=== PATIENT | female | born 1960 | race Caucasian/White ===

== ENCOUNTER 2023-11-17 16:18 | Outpatient (AMB) | payer OTHER, SELFPAY ==
--- NOTE | 2023-11-17 16:29 | HO.NEPHOV ---
HPI HPI Comments History of Present Illness Details I had the privilege of seeing Sue in follow-up for hypertension and nephrolithiasis. He is known to have mild CKD with a microscopic hematuria and some proteinuria. According to her, she had a CT scan last summer, during which she had developed severe allergy to contrast. In September of 2023, 1 morning she developed chest pressure with the difficulty in breathing. She was seen in emergency room where she underwent imaging studies, EKG and blood work. According to patient, she was told that nothing was found causing that episode. Two days ago she had a chest pressure which was worse than last September associated with the shortness of breath. She was seen in the emergency room and had workup including V/Q scan.( I had no access to any of these medical records and these are the details by the patient). 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 She has no edema, hematuria, frequency, dysuria, fever, nausea, vomiting, flank pain or suprapubic pain. She maintains good hydration. She takes meloxicam for her aches and pains. According to her she was also given prednisone and baclofen, thinking that this could be due to muscle spasms. Her blood pressure has been well controlled on current dose of valsartan. She avoids nonsteroidal anti-inflammatories. [facility] Medical History (Updated 11/18/23 @ 13:07 by Marco Maldonado MD) Microscopic hematuria Proteinuria Hypertension Nephrolithiasis Social History (Updated 11/17/23 @ 16:30 by Yanira Sanders MA) Alcohol intake: current Comment: Occasionally Patient Tobacco Use Status: Never used Tobacco Vital Signs 11/17/23 16:35 Height 5 ft 2 in Weight 173 lb BMI 31.6 BP 136/90 H Blood Pressure Location Lt brachial Position Sitting Pulse 80 Pulse Source Pulse Oximeter Pulse Oximetry (%) 100 Oxygen Delivery Method Room Air Physical Exam Vital Signs: Last Vital Signs Pulse 80 11/17/23 16:35 BP 136/90 H 11/17/23 16:35 Pulse Ox 100 11/17/23 16:35 Oxygen Delivery Method Room Air 11/17/23 16:35 BMI result Body Mass Index 31.6 Const General: comfortable and no acute distress Orientation/consciousness: patient oriented x3 HEENT Head: Yes normocephalic Mouth: Normal oral and palatal mucosa present Eyes EOM: EOMs intact bilaterally Neck Neck: Yes supple Resp Auscultation: clear to auscultation bilaterally Cardio Jugular venous distension: no JVD Rate: regular rate GI Palpation (GI): Soft to palpation Auscultation: normal bowel sounds General: Yes no CVA tenderness Back/Spine/Pelvis Back: no CVA tenderness Skin General skin exam: no rashes or lesions noted Neuro General: patient oriented x3 and moves all extremities Extrem General: Yes no pedal edema Assessment & Plan Assessment & Plan (1) Nephrolithiasis: Code(s): N20.0 - Calculus of kidney (2) Microscopic hematuria: Code(s): R31.29 - Other microscopic hematuria (3) Hypertension: Code(s): I10 - Essential (primary) hypertension Qualifiers: Hypertension type: primary hypertension Qualified Code(s): I10 - Essential (primary) hypertension (4) Proteinuria: Code(s): R80.9 - Proteinuria, unspecified Qualifiers: Proteinuria type: other Qualified Code(s): R80.8 - Other proteinuria Tad Rogers is known to have very mild CKD. She had microscopic hematuria and mild proteinuria. She has history of nephrolithiasis. She is hypertensive. Her blood pressure has been well controlled on current dose of valsartan. She does not take any nonsteroidal anti-inflammatories. She takes fish oil by mouth. She may have had IgA nephropathy. She has not had any exacerbation of renal calculus. She clearly needs echocardiogram, stress test and possibly coronary angiogram to rule out a coronary issue. This has been communicated with his primary care physician by phone call. I ordered blood work for follow-up. If her serum creatinine gets worse, I may consider doing a renal biopsy, if indicated. All questions answered. Follow-up appointment given. Orders: Orders Calcium 11/17/23 I10 - Essential (primary) hypertension, N20.0 - Calculus of kidney, R31.29 - Other microscopic hematuria, R80.9 - Proteinuria, unspecified Blood Urea Nitrogen 11/17/23 I10 - Essential (primary) hypertension, N20.0 - Calculus of kidney, R31.29 - Other microscopic hematuria, R80.9 - Proteinuria, unspecified Creatinine 11/17/23 I10 - Essential (primary) hypertension, N20.0 - Calculus of kidney, R31.29 - Other microscopic hematuria, R80.9 - Proteinuria, unspecified Electrolytes 11/17/23 I10 - Essential (primary) hypertension, N20.0 - Calculus of kidney, R31.29 - Other microscopic hematuria, R80.9 - Proteinuria, unspecified Medications: New valsartan 240 mg (1.5 x 160 mg) PO DAILY 30 days 45 tabs 5RF Coding Level of Care Code Est Pt Level 4 (52970) Diagnoses Nephrolithiasis N20.0 Microscopic hematuria R31.29 Primary hypertension I10 Hypertension type: primary hypertension Other proteinuria R80.8 Proteinuria type: other Results Reviewed Nephrology Results: No Data to Display
[2023-11-17 16:35] VITALS: BP 136/90; PULSE 80; O2SAT 100; BMI 31.6
== END 2023-11-17 16:56 | disposition home or self-care (01) ==
PROVIDERS: PCP Internal Medicine; Visit Provider Internal Medicine Nephrology
DX: N20.0 Calculus of kidney (principal); R31.29 Other microscopic hematuria; I10 Essential (primary) hypertension; R80.8 Other proteinuria
CPT/HCPCS: 99214

== ENCOUNTER → 2023-11-17 16:18 | Outpatient (BNVA) | payer OTHER, SELFPAY | PROVIDERS: PCP Internal Medicine; Visit Provider Internal Medicine Nephrology ==

== ENCOUNTER 2023-12-15 16:07 | Outpatient (AMB) | payer OTHER, SELFPAY ==
[2023-12-15 16:35] VITALS: BP 140/70; PULSE 80; O2SAT 98; BMI 32.2
--- NOTE | 2023-12-15 16:35 | HO.NEPHOV_ITS ---
HPI HPI Comments History of Present Illness Details I had the privilege of seeing Sue in follow-up for hypertension and nephrolithiasis. He is known to have mild CKD with a microscopic hematuria and some proteinuria. According to her, she had a CT scan last summer, during which she had developed severe allergy to contrast. In September of 2023, one morning she developed chest pressure with the difficulty in breathing. She was seen in emergency room where she underwent imaging studies, EKG and blood work. According to patient, she was told that nothing was found causing that episode. Two days ago she had a chest pressure which was worse than last September associated with the shortness of breath. She was seen in the emergency room and had workup including V/Q scan. She has no edema, hematuria, frequency, dysuria, fever, nausea, vomiting, flank pain or suprapubic pain. She maintains good hydration. She takes meloxicam for her aches and pains. According to her she was also given prednisone and baclofen, thinking that this could be due to muscl e spasms. Her blood pressure has been well controlled on current dose of valsartan. She avoids nonsteroidal anti-inflammatories. She feels improved now. She is due to see a conservation enforcement officer soon for continued workup. She has not had any medication changes since last visit. [facility] Medical History (Updated 11/18/23 @ 13:07 by Marco Maldonado MD) Microscopic hematuria Proteinuria Hypertension Nephrolithiasis Social History Alcohol intake: current Comment: Occasionally Patient Tobacco Use Status: Never used Tobacco Vital Signs 12/15/23 16:35 Height 5 ft 2 in Weight 176 lb 4 oz BMI 32.2 BP 140/70 H Blood Pressure Location Rt brachial Position Sitting Pulse 80 Pulse Source Pulse Oximeter Pulse Oximetry (%) 98 Oxygen Delivery Method Room Air Physical Exam Vital Signs: Last Vital Signs Pulse 80 12/15/23 16:35 BP 140/70 H 12/15/23 16:35 Pulse Ox 98 12/15/23 16:35 Oxygen Delivery Method Room Air 12/15/23 16:35 BMI result Body Mass Index 32.2 Const General: comfortable and no acute distress Orientation/consciousness: patient oriented x3 HEENT Head: Yes normocephalic Mouth: Normal oral and palatal mucosa present Eyes EOM: EOMs intact bilaterally Neck Neck: Yes supple Resp Auscultation: clear to auscultation bilaterally Cardio Jugular venous distension: no JVD Rate: regular rate GI Palpation (GI): Soft to palpation Auscultation: normal bowel sounds General: Yes no CVA tenderness Back/Spine/Pelvis Back: no CVA tenderness Skin General skin exam: no rashes or lesions noted Neuro General: patient oriented x3 and moves all extremities Extrem General: Yes no pedal edema Assessment & Plan Assessment & Plan (1) Nephrolithiasis: Code(s): N20.0 - Calculus of kidney (2) Microscopic hematuria: Code(s): R31.29 - Other microscopic hematuria (3) Proteinuria: Code(s): R80.9 - Proteinuria, unspecified Qualifiers: Proteinuria type: other Qualified Code(s): R80.8 - Other proteinuria (4) Hypertension: Code(s): I10 - Essential (primary) hypertension Qualifiers: Hypertension type: primary hypertension Qualified Code(s): I10 - Essential (primary) hypertension Tad Rogers is known to have very mild CKD. She had microscopic hematuria and mild proteinuria. She has history of nephrolithiasis. Her blood pressure has been well controlled on current dose of valsartan. She does not take any nonsteroidal anti-inflammatories. She takes fish oil by mouth. She may have had IgA nephropathy. She has not had any exacerbation of renal calculus. She is going to see a conservation enforcement officer likely is going to get an echocardiogram, stress test and possibly coronary angiogram to rule out a coronary issue. If her serum creatinine gets worse, I may consider doing a renal biopsy, if indicated. All questions answered. Follow-up appointment given. Orders: Orders Creatinine 12/15/23 I10 - Essential (primary) hypertension, N20.0 - Calculus of kidney, R31.29 - Other microscopic hematuria, R80.9 - Proteinuria, unspecified Blood Urea Nitrogen 12/15/23 I10 - Essential (primary) hypertension, N20.0 - Calculus of kidney, R31.29 - Other microscopic hematuria, R80.9 - Proteinuria, unspecified Electrolytes 12/15/23 I10 - Essential (primary) hypertension, N20.0 - Calculus of kidney, R31.29 - Other microscopic hematuria, R80.9 - Proteinuria, unspecified Coding Level of Care Code Est Pt Level 3 (95001) Diagnoses Nephrolithiasis N20.0 Microscopic hematuria R31.29 Other proteinuria R80.8 Proteinuria type: other Primary hypertension I10 Hypertension type: primary hypertension Results Reviewed Nephrology Results: No Data to Display
== END 2023-12-15 17:13 | disposition home or self-care (01) ==
PROVIDERS: PCP Internal Medicine; Visit Provider Internal Medicine Nephrology
DX: N20.0 Calculus of kidney (principal); R31.29 Other microscopic hematuria; R80.8 Other proteinuria; I10 Essential (primary) hypertension
CPT/HCPCS: 99213

== ENCOUNTER → 2023-12-15 16:07 | Outpatient (BNVA) | payer OTHER, SELFPAY | PROVIDERS: PCP Internal Medicine; Visit Provider Internal Medicine Nephrology ==

== ENCOUNTER 2024-04-14 09:30 | Outpatient (AMB) | payer OTHER, SELFPAY ==
--- NOTE | 2024-04-14 09:34 | HO.NEPHOV_ITS ---
Vital Signs 04/14/24 09:35 Height 5 ft 2 in Weight 178 lb BMI 32.6 BP 122/82 Blood Pressure Location Lt brachial Position Sitting Pulse 96 Pulse Source Pulse Oximeter Pulse Oximetry (%) 98 Oxygen Delivery Method Room Air Intake Visit Reasons: Follow Up/ LVM Environmental Scientists Required: No Accompanied by: Self / Same As Patient Allergies Iodinated Contrast Media Allergy (Verified 04/14/24 09:37) Unknown HPI Comments Details: I had the privilege of seeing Sue in follow-up for hypertension and nephrolithiasis. He is known to have mild CKD with a microscopic hematuria and some proteinuria. She has been having some GI issues lately. She has no edema, hematuria, frequency, dysuria, fever, nausea, vomiting, flank pain or suprapubic pain. She maintains good hydration. Her blood pressure has been well controlled on current dose of valsartan. She avoids nonsteroidal anti-inflammatories. She feels improved now. She has not had any medication changes since last visit. [facility] Medical History (Updated 11/18/23 @ 13:07 by Marco Maldonado MD) Microscopic hematuria Proteinuria Hypertension Nephrolithiasis Social History Alcohol intake: current Comment: Occasionally Patient Tobacco Use Status: Never used Tobacco Physical Exam Vital Signs: Last Vital Signs Pulse 96 04/14/24 09:35 BP 122/82 04/14/24 09:35 Pulse Ox 98 04/14/24 09:35 Oxygen Delivery Method Room Air 04/14/24 09:35 BMI result Body Mass Index 32.6 Const General: comfortable and no acute distress Orientation/consciousness: patient oriented x3 HEENT Head: Yes normocephalic Mouth: Normal oral and palatal mucosa present Eyes EOM: EOMs intact bilaterally Neck Neck: Yes supple Resp Auscultation: clear to auscultation bilaterally Cardio Jugular venous distension: no JVD Rate: regular rate GI Palpation (GI): Soft to palpation Auscultation: normal bowel sounds General: Yes no CVA tenderness Back/Spine/Pelvis Back: no CVA tenderness Skin General skin exam: no rashes or lesions noted Neuro General: patient oriented x3 and moves all extremities Extrem General: Yes no pedal edema Results Reviewed Nephrology Results: No Data to Display Assessment & Plan Assessment & Plan (1) Nephrolithiasis: Code(s): N20.0 - Calculus of kidney Category: Medical (2) Microscopic hematuria: Code(s): R31.29 - Other microscopic hematuria Category: Medical (3) Proteinuria: Code(s): R80.9 - Proteinuria, unspecified Category: Medical Qualifiers: Proteinuria type: other Qualified Code(s): R80.8 - Other proteinuria (4) Hypertension: Code(s): I10 - Essential (primary) hypertension Category: Medical Qualifiers: Hypertension type: primary hypertension Qualified Code(s): I10 - Essential (primary) hypertension Tad Rogers is known to have very mild CKD. She had microscopic hematuria and mild proteinuria. She has history of nephrolithiasis. Her blood pressure has been well controlled on current dose of valsartan. She does not take any nonsteroidal anti-inflammatories. She takes fish oil by mouth. She may have had IgA nephropathy. She has not had any exacerbation of renal calculus. All questions answered. Follow-up appointment given. Orders: Orders Blood Urea Nitrogen Today I10 - Essential (primary) hypertension, N20.0 - Calculus of kidney, R31.29 - Other microscopic hematuria, R80.8 - Other proteinuria Creatinine Today I10 - Essential (primary) hypertension, N20.0 - Calculus of kidney, R31.29 - Other microscopic hematuria, R80.8 - Other proteinuria Electrolytes Today I10 - Essential (primary) hypertension, N20.0 - Calculus of kidney, R31.29 - Other microscopic hematuria, R80.8 - Other proteinuria UA and rflx microscopic Today I10 - Essential (primary) hypertension, N20.0 - Calculus of kidney, R31.29 - Other microscopic hematuria, R80.8 - Other proteinuria Protein Creatinine Ratio, Ur Today I10 - Essential (primary) hypertension, N20.0 - Calculus of kidney, R31.29 - Other microscopic hematuria, R80.8 - Other proteinuria Coding Level of Care Code Est Pt Level 4 (05820) Diagnoses Nephrolithiasis N20.0 Microscopic hematuria R31.29 Other proteinuria R80.8 Proteinuria type: other Primary hypertension I10 Hypertension type: primary hypertension
[2024-04-14 09:35] VITALS: BP 122/82; PULSE 96; O2SAT 98; BMI 32.6
== END 2024-04-14 09:55 | disposition home or self-care (01) ==
PROVIDERS: PCP Internal Medicine; Visit Provider Internal Medicine Nephrology
DX: N20.0 Calculus of kidney (principal); R31.29 Other microscopic hematuria; R80.8 Other proteinuria; I10 Essential (primary) hypertension
CPT/HCPCS: 99214

== ENCOUNTER → 2024-04-14 09:30 | Outpatient (BNVA) | payer OTHER, SELFPAY | PROVIDERS: PCP Internal Medicine; Visit Provider Internal Medicine Nephrology ==

== ENCOUNTER 2025-06-29 13:49 | Outpatient (AMB) | payer MEDICARE, SELFPAY ==
--- NOTE | 2025-06-29 14:08 | HO.NEPHOV ---
Vital Signs 06/29/25 14:09 Height 5 ft 2 in Weight 175 lb 6 oz BMI 32.1 BP 140/80 H Blood Pressure Location Lt brachial Position Sitting Pulse 77 Pulse Source Pulse Oximeter Pulse Oximetry (%) 98 Oxygen Delivery Method Room Air Intake Visit Reasons: CKD-LVM Seat Covers Trimmer Required: No Accompanied by: Self / Same As Patient Allergies Iodinated Contrast Media Allergy (Verified 06/29/25 14:09) Unknown Medication List - Last Reconciled 06/29/25 by Marco Maldonado MD cholecalciferol (vitamin D3) 25 mcg PO DAILY omega 4-bom-btu-fish oil 1,000 (120-180) mg (Fish Oil) 1 cap PO DAILY omeprazole 20 mg PO DAILY valsartan 160 mg PO DAILY HPI Comments Details: Sue was seen in follow-up for hypertension and nephrolithiasis. She is known to have mild CKD with a microscopic hematuria and some proteinuria. She has retired from work and is moving to [place], [place]. She has no edema, hematuria, frequency, dysuria, fever, nausea, vomiting, flank pain or suprapubic pain. She maintains good hydration. Her blood pressure has been well controlled on current dose of valsartan. She avoids nonsteroidal anti-inflammatories. She is trying to loose weight . She has not had any medication changes since last visit. [facility] Medical History (Updated 11/18/23 @ 13:07 by Marco Maldonado MD) Microscopic hematuria Proteinuria Hypertension Nephrolithiasis Social History Alcohol intake: current Comment: Occasionally Patient Tobacco Use Status: Never used Tobacco Review of Systems Const All systems reviewed & are unremarkable except as noted in HPI and below Physical Exam Vital Signs: Last Vital Signs Pulse 77 06/29/25 14:09 BP 140/80 H 06/29/25 14:09 Pulse Ox 98 06/29/25 14:09 Oxygen Delivery Method Room Air 06/29/25 14:09 BMI result Body Mass Index 32.1 Const General: comfortable and no acute distress Orientation/consciousness: patient oriented x3 HEENT Head: Yes normocephalic Mouth: Normal oral and palatal mucosa present Eyes EOM: EOMs intact bilaterally Neck Neck: Yes supple Resp Auscultation: clear to auscultation bilaterally Cardio Jugular venous distension: no JVD Rate: regular rate GI Palpation (GI): Soft to palpation Auscultation: normal bowel sounds General: Yes no CVA tenderness Back/Spine/Pelvis Back: no CVA tenderness Skin General skin exam: no rashes or lesions noted Neuro General: patient oriented x3 and moves all extremities Extrem General: Yes no pedal edema Assessment & Plan Assessment & Plan (1) Nephrolithiasis: Code(s): N20.0 - Calculus of kidney Category: Medical (2) Hypertension: Code(s): I10 - Essential (primary) hypertension Category: Medical Qualifiers: Hypertension type: primary hypertension Qualified Code(s): I10 - Essential (primary) hypertension (3) Proteinuria: Code(s): R80.9 - Proteinuria, unspecified Category: Medical Qualifiers: Proteinuria type: other Qualified Code(s): R80.8 - Other proteinuria Tad Rogers is known to have very mild CKD. She has H/O microscopic hematuria and mild proteinuria. She has history of nephrolithiasis. Her blood pressure has been well controlled on current dose of valsartan. She does not take any nonsteroidal anti-inflammatories. She takes fish oil by mouth. She may have had IgA nephropathy. She has not had any exacerbation of renal calculus. I did not make any medication changes today. Valsartan refilled. All questions answered. Follow-up appointment given. Orders: Orders Electrolytes 10 Months I10 - Essential (primary) hypertension, N20.0 - Calculus of kidney, R80.8 - Other proteinuria Protein Creatinine Ratio, Ur 10 Months I10 - Essential (primary) hypertension, N20.0 - Calculus of kidney, R80.8 - Other proteinuria Creatinine 10 Months I10 - Essential (primary) hypertension, N20.0 - Calculus of kidney, R80.8 - Other proteinuria Blood Urea Nitrogen 10 Months I10 - Essential (primary) hypertension, N20.0 - Calculus of kidney, R80.8 - Other proteinuria Medications: Changed From valsartan 160 mg PO DAILY To valsartan 240 mg (1.5 x 160 mg) PO DAILY 135 tabs 3RF 90 days Coding Level of Care Code Est Pt Level 4 (99458) Diagnoses Nephrolithiasis N20.0 Primary hypertension I10 Hypertension type: primary hypertension Other proteinuria R80.8 Proteinuria type: other
[2025-06-29 14:09] VITALS: BP 140/80; PULSE 77; O2SAT 98; BMI 32.1
--- OUTSIDE RECORDS SUMMARY | 2025-06-29 17:42 | XMS_ITS | Clinical Summary ---
Author Organization [facility] Address [address] [facility] [address] [place] [address] Phone Care Team Providers Care S[employer] Security Name Role Phone Larry Patterson MD Primary Care Provider [phone] Allergies No known active allergies Medications cholecalciferol (VITAMIN D-3) 25 MCG (1000 UT) capsule Take 1 capsule by mouth 1 (one) time each day Active Quail-3 Fatty Acids (Fish Oil) 1000 MG capsule delayed-release Take 1 capsule by mouth 1 (one) time each day Active omeprazole (PriLOSEC) [address] capsule Take 20 mg by mouth 1 (one) time each day Do not crush or chew. Active valsartan-hydro CHLOROthiazide (DIOVAN-HCT) 160-12.5 MG per tablet TAKE 1 TABLET BY MOUTH EVERY DAY 90 tablet 4 08/25/2022 Active Active Problems Problem Noted Date Diagnosed Date Hypertension 04/10/2022 Anemia 03/19/2021 Blood in urine 03/19/2021 Essential hypertension 03/19/2021 Proteinuria 03/19/2021 Renal stone 03/19/2021 Family History Medical History Relation Comments Diabetes Father Heart disease Father Hypertension Father Relation Status Comments Father Mother Alive Social History Tobacco Use Types Packs/Day Years Used Date Smoking Tobacco: Never Smokeless Tobacco: Never Tobacco Cessation:Counseling Given: Not Answered Alcohol Use Standard Drinks/Week Comments Yes 0 (1 standard drink = 0.6 oz pure alcohol) Alcoholic Drinks/day: Occasional social drink Comments Unknown Sex and Gender Information Value Date Recorded Sex Assigned at Not on file Legal Sex Female 5:07 PM EST Gender Identity Not on file Sexual Orientation Not on file Last Filed Vital Signs Vital Sign Reading Time Taken Comments Blood Pressure 128/82 04/16/2023 2:19 PM EDT Pulse 82 04/16/2023 2:19 PM EDT Temperature - - Respiratory Rate - - Oxygen Saturation 97% 04/10/2022 4:17 PM EDT Inhaled Oxygen Concentration - - Weight 81.5 kg (179 lb 9.6 oz) 04/16/2023 2:19 P M EDT Height 160 cm (5' 3 ) 03/19/2020 12:00 PM EDT Body Mass Index 31.81 03/19/2020 12:00 PM EDT Plan of Treatment Health Maintenance Due Date Last Done Comments Breast Cancer Screening 1960 Pneumococcal Vaccine: 50+ Ye ars (1 of 2 - PCV) 1978 Colorectal Cancer Screening: Annual FOBT 2008 Colorectal Cancer Screening: Colonoscopy 2008 Colorectal Cancer Screening: Sigmoidoscopy 2008 Influenza Vaccine (#1) 2025 Hepatitis B Vaccine Aged Out No longe r eligible based on patient's age to complete this topic Insurance Care Teams Sap Gr[employer] Security Relationship Specialty Start Date End Date Larry Patterson MD [address] [place] [address] [phone] PCP - General 10/29/20
--- OUTSIDE RECORDS SUMMARY | 2025-06-29 17:42 | XMS_ITS ---
Author Name [facility] Organization Unknown Care Team Organization Name Specialty Phone Email Start Date End Da leon[facility] GRIS DUMONT Primary Care 08/26/2022 06/06/20 24
--- OUTSIDE RECORDS SUMMARY | 2025-06-29 17:42 | XMS_ITS | Clinical Summary ---
Author Organization [facility] Address [address] [place] [address] Care Team Providers Care Azure Architect Name Role Phone Larry Patterson MD Primary Care Provider Unavailab le Allergies Active Allergy Reactions Criticality Noted Date Comments Iodinated Contrast Media 12/08/2023 Medications Medication Sig Dispensed Refills Start Date End Date Status valsartan (DIOVAN) tablet 160 mg Take 1 tablet (160 mg total) by mouth daily. 0 Active aspirin EC 81 MG tablet Take 1 tablet (81 mg total) by mouth daily. 0 Active omeprazole (PriLOSEC) 20 MG capsule Take 1 capsule (20 mg total) by mouth daily. 0 Active Bybee-3 Fatty Acids (Fish Oil) 1000 MG CAPS Take by mouth. 0 Active vitamin D3 (cholecalciferol) 25 MCG (1000 UT) tablet Take 1 tablet (25 mcg total) by mouth daily. 0 Active Active Problems No known active problems Social History Tobacco Use Types Packs/Day Years Used Date Smoking Tobacco: Never Smokeless Tobacco: Never Tobacco Cessation:Counseling Given: Not Answered Alcohol Use Standard Drinks/Week Comments Yes 0 (1 standard drink = 0.6 oz pur e alcohol) Wine once a month Sex and Gender Information Value Date Recorded Sex Assigned at Not on file Gender Identity Not on file Sexual Orientation Not on file Job Start Date Occupation Industry Not on file Not on file Not on file Last Filed Vital Signs Vital Sign Reading Time Taken Comments Blood Pressure 132/81 12/30/2023 2:32 PM EDT Pulse 92 12/30/2023 2:32 PM EDT Temperature 36.9 C (98.4 F) 12/30/2023 2:32 PM EDT Respiratory Rate - - Oxygen Saturation 99% 12/30/2023 2:32 PM EDT Inhaled Oxygen Concentration - - Weight 80.3 kg (177 lb) 12/30/2023 2:32 PM EDT Height - - Body Mass Index - - Plan of Treatment Health Maintenance Due Date Last Done Comments Hepatitis C Screening 1959 COVID-19 Vaccine (#1) 06/10/1960 Depression Screening 1971 Preventative Health Evaluation 1977 Cervical Cancer Screening (P ap Smear) 1980 Colon Cancer Screening (Colonoscopy) 2004 Breast Cancer Screening (Mammogram) 2009 Shingrix-Zoster Vaccine (1 of 2) 2009 DTap / Tdap / Td (2 - Td or Tdap) 11/23/2022 013 Fall Risk Assessment 2024 Osteoporosis Screening (DEXA Scan) 2024 Pneumococcal Vaccine (1 of 1 - PCV) 2024 Influenza Vaccine (#1) 2025 RSV Adult > 60+ Yrs or Pregn ant (1 - 1-dose 75+ series) 2034 Hepatitis B Vaccines Aged Out No long er eligible based on patient's age to complete this topic Pneumococcal Vaccine Aged Out No long er eligible based on patient's age to complete this topic RSV Ped < 20 months Aged Out No longe r eligible based on patient's age to complete this topic Insurance Payer Benefit Plan / Group Subscriber ID Effective Dates Phone Address [employer] [id number] 2018-Clemente pereira [address] [facility] [address] [place] [phone] O Care Teams Azure Architect Relationship Specialty Start Date End Date Larry Patterson MD PCP - General Internal Medicine 11/09/23
== END 2025-06-29 14:58 | disposition home or self-care (01) ==
LOC: HO.HKAS 13:50
PROVIDERS: PCP Internal Medicine; Visit Provider Internal Medicine Nephrology
DX: N20.0 Calculus of kidney (principal); I10 Essential (primary) hypertension; R80.8 Other proteinuria
CPT/HCPCS: 99214

== ENCOUNTER → 2025-06-29 13:49 | Outpatient (BNVA) | payer MEDICARE, SELFPAY | PROVIDERS: PCP Internal Medicine; Visit Provider Internal Medicine Nephrology | DX: I10 Essential (primary) hypertension (principal); N20.0 Calculus of kidney; R80.8 Other proteinuria; N18.9 Chronic kidney disease, unspecified; R31.29 Other microscopic hematuria | CPT/HCPCS: 99212 ==